=== PATIENT | female | born 1965 | race Caucasian/White ===

== ENCOUNTER 2024-04-26 05:52 | Emergency (ER) | payer SELFPAY ==
[~2024-04-26] VITALS: Ht 162.6 cm; Wt 53.0 kg
[2024-04-26] MEDS ORDERED: Iopamidol 370 (Isovue) 76% 100 ML SDV IV ONE ×2 (06:00)
[2024-04-26 06:29] LABS: BASO% 1.1 % (0-3); EOS% 3.1 % (0-8); HEMATOCRIT 43.2 % (37.0-47.0); HEMOGLOBIN 14.4 g/dl (12.0-16.0); IMMATURE GRANULOCYTES 0.1 % (0.0-5.0); LYMPH% 27.3 % (15-41); MEAN CELL VOLUME 105.1 fL CALC (80.0-100.0); MEAN CORPUSCULAR HGB CONC 33.3 g/dL CAL (32.0-36.0); MONO% 8.7 % (2-13); NEUT# 4.97 thou/uL (2.00-7.15); NEUT% 59.7 % (42-76); RED BLOOD COUNT 4.11 mill/uL (4.20-5.60); RED CELL DISTRI WIDTH 12.4 % (11.5-15.5)
[2024-04-26 06:35] VITALS: BP 172/79
[2024-04-26 06:40] LABS: ALBUMIN 4.1 g/dL (3.2-5.0); ALKALINE PHOSPHATASE 51 u/l (38-126); ANION GAP 12 (6-22 (CALC)); BILIRUBIN, TOTAL 0.6 mg/dL (0.02-1.3); BUN 14 mg/dL (7-17); BUN/CREATININE RATIO 19 (12-20 (CALC)); CALCULATED LDLCHOLESTEROL 62 mg/dL (62-129 (CALC)); CARBON DIOXIDE 27 mmol/l (22-30); CHLORIDE 103 mmol/l (95-108); CHOLESTEROL HDL RATIO 1.9 (<4.4 (CALC)); CREATININE 0.7 mg/dL (0.5-1.0); ESTIMATED GFR 99 ML/MIN (>=90 (CALC)); HDL CHOLESTEROL 81 mg/dL (39.0-59.0); POTASSIUM 4.5 mmol/l (3.5-5.1); SGOT/AST 28 u/l (14-36); SODIUM 137 mmol/l (137-146); TOTAL CHOLESTEROL 156 mg/dl (0-199); TOTAL PROTEIN 6.8 g/dL (6.3-8.2); TOTAL TRIGLYCERIDES 62 mg/dl (0-149); VLDL CHOLESTROL 12 mg/dl (1-41 (CALC))
[2024-04-26 06:45] VITALS: BP 164/82
[2024-04-26 06:51] LABS: INTERNATIONAL NORMALIZED RATIO 0.9 RATIO (0.7-1.3)
[2024-04-26] MEDS ORDERED: BAYER CHEWABLE81 MG PO (06:51)
[2024-04-26 06:52] LABS: PROTHROMBIN TIME 9.9 SECONDS (9.0-12.5)
[2024-04-26 07:00] VITALS: BP 167/83
[2024-04-26 07:15] VITALS: BP 170/75
[2024-04-26 07:31] VITALS: BP 165/79
[2024-04-26 07:47] VITALS: BP 165/79
== END 2024-04-26 07:40 | disposition short-term general hospital (02) | DRG 65 ==
LOC: ED 05:52
PROVIDERS: Emergency Medicine
DX: I63.511 Cerebral infarction due to unspecified occlusion or stenosis of right middle cerebral artery (principal); G81.94 Hemiplegia, unspecified affecting left nondominant side; R47.81 Slurred speech; R29.810 Facial weakness; G83.24 Monoplegia of upper limb affecting left nondominant side; H53.47 Heteronymous bilateral field defects; R29.711 NIHSS score 11; Z86.718 Personal history of other venous thrombosis and embolism
CPT/HCPCS: Q9967